=== PATIENT | male | born 1980 | race Two or more races ===

== ENCOUNTER 2023-02-01 08:50 | Emergency (ER) | payer OTHER ==
[~2023-02-01] VITALS: Ht 167.6 cm; Wt 72.6 kg
[2023-02-01 09:13] VITALS: BP 130/92
[2023-02-01] MEDS ORDERED: IBUP-1455 PO (09:51)
[2023-02-01] MEDS ORDERED: LIDO2SOL18 MT (09:51)
== END 2023-02-01 10:01 | disposition home or self-care (01) ==
LOC: ER 08:50
DX: K13.0 Diseases of lips (principal); G89.11 Acute pain due to trauma; K13.79 Other lesions of oral mucosa; R68.84 Jaw pain